=== PATIENT | female | born 1970 | race Caucasian/White ===

== ENCOUNTER 2018-08-24 17:11 | Emergency (ER) | payer SELFPAY ==
[~2018-08-24] VITALS: Ht 162.6 cm; Wt 95.3 kg
[2018-08-24 17:21] VITALS: Ht 162.6 cm; Wt 95.3 kg
[2018-08-24 18:49] VITALS: BP 128/77
== END 2018-08-24 18:49 | disposition home or self-care (01) ==
LOC: ED 17:11
DX: S76.011A Strain of muscle, fascia and tendon of right hip, initial encounter (principal); V49.9XXA Car occupant (driver) (passenger) injured in unspecified traffic accident, initial encounter; Y93.89 Activity, other specified; Y92.481 Parking lot as the place of occurrence of the external cause; Y99.8 Other external cause status
CPT/HCPCS: Q0162